=== PATIENT | female | born 1945 | race Caucasian/White ===

== ENCOUNTER → 2021-07-28 15:17 | Outpatient (BNVA) | payer MEDICARE, SELFPAY | PROVIDERS: Visit Provider Family Medicine Adult Medicine | DX: R42 Dizziness and giddiness (principal); R55 Syncope and collapse; Z95.0 Presence of cardiac pacemaker; G45.9 Transient cerebral ischemic attack, unspecified; Z13.6 Encounter for screening for cardiovascular disorders; I67.9 Cerebrovascular disease, unspecified; H91.10 Presbycusis, unspecified ear; I10 Essential (primary) hypertension | CPT/HCPCS: 80053; 83036; 84443; 85025 ==

== ENCOUNTER → 2021-08-10 09:31 | Outpatient (BNVA) | payer MEDICARE, SELFPAY | PROVIDERS: Visit Provider Family Medicine Adult Medicine | DX: G45.9 Transient cerebral ischemic attack, unspecified (principal); I67.9 Cerebrovascular disease, unspecified; R06.02 Shortness of breath; R42 Dizziness and giddiness; Z13.6 Encounter for screening for cardiovascular disorders; J44.9 Chronic obstructive pulmonary disease, unspecified; H91.10 Presbycusis, unspecified ear; I10 Essential (primary) hypertension | CPT/HCPCS: 80061 ==

== ENCOUNTER 2021-09-07 10:57 | Emergency (ER) | payer MEDICARE, SELFPAY ==
[2021-09-07 11:05] VITALS: BP 154/75; PULSE 70; RESP 18; TEMP 36.3; O2SAT 96; BMI 18.3
--- NOTE | 2021-09-07 11:19 | PC.NURSE ---
ekg done and given to provider.
--- NOTE | 2021-09-07 12:20 | XR_ITS ---
WS: [id number] Portable AP upright chest, 09/07/2021 Clinical Data: chest pain Comparison: None. Findings: No nodules, masses or effusions are seen. The heart is normal. There is a pacemaker generat or overlying the lateral aspect of the right lung. The pulmonary vascularity is not increased. No pne umonia or pneumothorax is seen. The aortic arch and descending thoracic aorta show tortuosity. XR/XR chest 1V portable 14252 Impression: Atherosclerosis.
--- NOTE | 2021-09-07 12:21 | ECG_ITS ---
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 Measurements Intervals [place] Rate: 70 P: 213 ID: [id number] QRS: 83 QRSD: 94 T: 71 QT: 402 QTc: 434 Interpretive Statements ELECTRONIC ATRIAL PACEMAKER ABNORMAL RHYTHM ECG No previous ECG available for comparison Nonspecific ST change Electronically Signed On 09-07-2021 20:45:00 ELECTRONICS INSTALLER by Юлия Morse M.D. [id number]
[2021-09-07 13:39] LABS: Basophils # 0.1 10^3/uL (0.0-0.1); Basophils % 0.7 %; Eosinophils # 0.1 10^3/uL (0.0-0.8); Eosinophils % 0.7 %; Hematocrit 40.8 % (37.0-47.0); Hemoglobin 13.3 g/dL (11.5-15.3); Lymphocytes # 1.2 10^3/uL (0.8-4.8); Lymphocytes % 17.6 %; Mean Corpuscular HGB Conc 32.6 g/dL (30.0-36.0); Mean Corpuscular Hemoglobin 30.6 pg (28.0-34.0); Mean Platelet Volume 8.6 fL (7.4-10.4); Monocytes # 0.4 10^3/uL (0.2-0.9); Monocytes % 5.6 %; Nucleated Red Blood Cells % 0 %; Platelet Count 281 10^3/cmm (130-400); Red Blood Count 4.34 10^6/uL (4.1-5.3); Red Cell Distribution Width 12.8 % (12.1-15.1); White Blood Count 6.9 10^3/uL (4.0-10.0)
[2021-09-07 14:00] LABS: Alanine Aminotransferase 16 U/L (0-33); Albumin Level 4.5 g/dL (3.5-5.2); Alkaline Phosphatase 62 IU/L (35-105); Anion Gap 17.6 (5-19); Aspartate Amino Transferase 26 U/L (0-32); Blood Urea Nitrogen 11 mg/dL (8-23); Calcium 8.8 mg/dL (8.5-10.5); Carbon Dioxide 26 mmol/L (22-29); Chloride 96 mmol/L (98-107); Globulin 2.8 g/dL (1.3-4.6); Glucose 83 mg/dL (65-115); Osmolality Calculated 281 mOsm/kg (285-295); Potassium 3.6 mmol/L (3.5-5.1); Sodium 136 mmol/L (136-145); Total Bilirubin 0.4 mg/dL (0.15-1.2); Total Protein 7.3 g/dL (6.6-8.7); Troponin(5th) Baseline 6 ng/L (0-10)
--- NOTE | 2021-09-07 14:21 | ECG_ITS ---
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 Measurements Intervals [place] Rate: 69 P: 240 DC: 210 QRS: 74 QRSD: 89 T: 81 QT: 411 QTc: 443 Interpretive Statements ELECTRONIC ATRIAL PACEMAKER MODERATE ST DEPRESSION [0.05+ mV ST DEPRESSION] Compared to ECG 09/07/2021 11:16:30 ST (T wave) deviation now present Electronically Signed On 09-07-2021 20:50:38 MUSIC MINISTRIES DIRECTOR by Юлия Morse M.D. [id number]
[2021-09-07 16:01] LABS: Troponin 5 2HR Delta 0 ABS# (0-10)
[2021-09-07 17:35] VITALS: BP 148/78; PULSE 78; RESP 16; O2SAT 98
--- NOTE | 2021-09-07 22:24 | W.ED.CHESTPA ---
HPI - Chest Pain General: Chief Complaint: Chest Pain Stated Complaint: CHEST PAINS FOR 4 HRS Time Seen by Provider: 09/07/21 17:00 Source: patient Mode of arrival: ambulatory History of Present Illness: HPI narrative: 76-year-old female complaining of an episode of chest pain that occurred this morning around 445 and resolved approximately 4 hours later. She currently is pain-free. She is concerned about possible medication interactions causing the pain. Denies any shortness of breath, fever, cough. She is very anxious and wants to leave as soon as possible. Pertinent past history: coronary artery disease Onset (ago): hour(s) Timing of current episode: now resolved Onset: during rest Pain location: epigastric Pain radiation: back Severity: mild Quality: aching and sharp Exacerbating factors: nothing Associated symptoms: Reports no associated symptoms; Deny fever(s) Review of Systems General: Reports: 10 or more systems reviewed and unremarkable except in HPI and below Const: Denies: fever(s) or chills PFSH ED PFSH: Medical History Allergic rhinitis due to allergen Anxiety and depression Bleeding external hemorrhoids COPD suggested by initial evaluation CVD (cerebrovascular disease) Remote CVA Dizziness and giddiness Gastroesophageal reflux disease Hearing loss of aging Hx of fracture of hip Hypertension Near syncope Pacemaker Shortness of breath on exertion TIA (transient ischemic attack) Physical Exam Const: COMMON NORMALS: patient oriented x3 GENERAL APPEARANCE: anxious; not ill appearing and not frail appearing NUTRITIONAL APPEARANCE: thin HENMT: COMMON NORMALS: normocephalic and atraumatic HEAD & SCALP: normocephalic and atraumatic FACE & SINUS: normal facial exam and face symmetric Eye: COMMON NORMALS: Equal, round and reactive pupils present, EOMs intact bilaterally and conjunctivae normal ALIGNMENT: Yes alignment normal CONJUNCTIVA: Yes conjunctivae normal PUPIL: Yes Equal, round and reactive pupils present Neck/C-Spine: COMMON NORMALS: full ROM and no lymphadenopathy Chest: COMMONS NORMALS: normal inspection of the chest and normal palpation of entire chest wall Resp: COMMON NORMALS: normal respiratory effort, No retractions and No use of accessory muscles EFFORT & INSPECTION: Yes able to speak in complete sentences Cardio: COMMON NORMALS: regular rate and regular rhythm; negative for Peripheral pulses 2+ throughout RATE: regular rate RHYTHM: regular rhythm PERIPHERAL PULSES: No Peripheral pulses 2+ throughout GI: COMMON NORMALS: Soft to palpation PALPATION: Yes Soft to palpation, No Tenderness to palpation present (GI), No Guarding due to palpation present (GI) and No Rigid due to palpation Neuro: COMMON NORMALS: patient oriented x3, CN's II-XII intact bilaterally and moves all extremities Psych: COMMON NORMALS: mental status grossly normal, Normal thought process present, cooperative and speech normal ACTIVITY/MOTOR BEHAVIOR: Yes restless SPEECH: Yes normal speech MOOD & AFFECT: Yes anxious and Yes irritable THOUGHT PROCESS: Normal thought process present Skin: COMMON NORMALS: no rashes or lesions noted, no wounds and turgor normal GENERAL SKIN EXAM: no rashes or lesions noted and turgor normal Course Vital Signs: Vital signs: Vital Signs Temperature 97.4 F L 09/07/21 11:05 Pulse Rate 78 09/07/21 17:35 Respiratory Rate 16 09/07/21 17:35 Blood Pressure 148/78 09/07/21 17:35 Pulse Oximetry 98 09/07/21 17:35 MDM - Chest Pain MDM Narrative: Medical decision making narrative: 76-year-old female had an episode of chest pain earlier this morning, it is since resolved. She is worried about her Nexium interacting with her Plavix. Her labs are unremarkable, chest x-ray without any acute abnormalities. Serial EKGs do not show any acute ischemic change. Serial troponin levels unchanged, 6 My suspicion for acute coronary syndrome is very low in this patient, I think she is stable for discharge home, she can follow-up with her PCP to discuss further concerns about her medications. Lab Data: Labs: Lab Results 09/07/21 09/07/21 09/07/21 13:18 13:18 13:18 WBC 6.9 10^3/uL 10^3/ uL (4.0-10.0) RBC 4.34 10^6/uL 10^6 /uL (4.1-5.3) Hgb 13.3 g/dL g/dL (11.5-15.3) Hct 40.8 % % (37.0-47.0) MCV 94.0 fl fl (81-99) MCH 30.6 pg pg (28.0-34.0) MCHC 32.6 g/dL g/dL (30.0-36.0) RDW 12.8 % % (12.1-15.1) Plt Count 281 10^3/cmm 10^3 /cmm (130-400) MPV 8.6 fL fL (7.4-10.4) Neut % (Auto) 75.0 % % Lymph % (Auto) 17.6 % % Gordon % (Auto) 5.6 % % Eos % (Auto) 0.7 % % Baso % (Auto) 0.7 % % Neut # (Auto) 5.20 10^3/uL 10^3 /uL (1.8-7.7) Lymph # (Auto) 1.2 10^3/uL 10^3/ uL (0.8-4.8) Gordon # (Auto) 0.4 10^3/uL 10^3/ uL (0.2-0.9) Eos # (Auto) 0.1 10^3/uL 10^3/ uL (0.0-0.8) Baso # (Auto) 0.1 10^3/uL 10^3/ uL (0.0-0.1) Nucleated RBC % (a uto) 0 % % Nucleated RBCs # 0.0 /100WBC /100W BC Sodium 136 mmol/L mmol/L (136-145) Potassium 3.6 mmol/L mmol/L (3.5-5.1) Chloride 96 mmol/L L mmol/ L (98-107) Carbon Dioxide 26 mmol/L mmol/L (22-29) Anion Gap 17.6 (5-19) BUN 11 mg/dL mg/dL (8-23) Creatinine 0.6 mg/dL mg/dL (0.5-0.9) GFR Calculation Not Reportable Glucose 83 mg/dL mg/dL (65-115) Calculated Osmolal ity 281 mOsm/kg L mOs m/kg (285-295) Calcium 8.8 mg/dL mg/dL (8.5-10.5) Total Bilirubin 0.4 mg/dL mg/dL (0.15-1.2) AST 26 U/L U/L (0-32) ALT 16 U/L U/L (0-33) Alkaline Phosphata se 62 IU/L IU/L (35-105) Troponin T Baselin e 6 ng/L ng/L (0-10) Troponin T 120 Min telida Delta Troponin T Total Protein 7.3 g/dL g/dL (6.6-8.7) Albumin 4.5 g/dL g/dL (3.5-5.2) Globulin 2.8 g/dL g/dL (1.3-4.6) 09/07/21 15:29 WBC RBC Hgb Hct MCV MCH MCHC RDW Plt Count MPV Neut % (Auto) Lymph % (Auto) Gordon % (Auto) Eos % (Auto) Baso % (Auto) Neut # (Auto) Lymph # (Auto) Gordon # (Auto) Eos # (Auto) Baso # (Auto) Nucleated RBC % (a uto) Nucleated RBCs # Sodium Potassium Chloride Carbon Dioxide Anion Gap BUN Creatinine GFR Calculation Glucose Calculated Osmolal ity Calcium Total Bilirubin AST ALT Alkaline Phosphata se Troponin T Baselin e Troponin T 120 Min telida 6.00 ng/L ng/L (0-10) Delta Troponin T 0 ABS# ABS# (0-10) Total Protein Albumin Globulin Discharge Plan Discharge Patient Disposition: Home Clinical Impression: Chest pain not due to acute coronary syndrome Condition: Stable Prescriptions: No Action albuterol sulfate [ProAir HFA] 90 mcg/actuation HFA aerosol inhaler 2 puff inhalation Q6H PRN (Reason: shortness of breath or wheezing) Qty: 8.5 RF: 3 montelukast [Singulair] 10 mg tablet 10 mg PO DAILY Qty: 30 RF: 5 Preparation H 0.25-14-74.9 % ointment 1 applic KS DAILY PRN (Reason: hemorrhoids) Qty: 57 RF: 1 omeprazole 20 mg capsule,delayed release(DR/EC) 20 mg PO DAILY Qty: 30 RF: 5 atorvastatin 10 mg tablet 10 mg PO BEDTIME RF: 0 atenolol 25 mg tablet 25 mg PO BID RF: 0 clopidogrel 75 mg tablet 75 mg PO DAILY RF: 0 tramadol 50 mg tablet 50 mg PO BID PRN (Reason: Pain) RF: 0 triamterene-hydrochlorothiazid 37.5-25 mg capsule 1 cap PO DAILY RF: 0 multivitamin Tablet 1 tab PO DAILY RF: 0 Vitamin C 500 mg Tablet 500 mg PO DAILY RF: 0 aspirin 81 mg Tablet,Chewable 81 mg PO DAILY RF: 0 Vitamin B-12 25 mcg Tablet 1,000 mcg PO DAILY RF: 0 flaxseed 1,000 mg Capsule 1,000 mg PO DAILY RF: 0 Discharge Orders: Discharge ED (Routine); Ordered 09/07/21 Ordered By: Rissa Howard Referrals: Ton Muse MD [Primary Care Provider] - Discharge Diet: Advance as tolerated Discharge Activity: Resume usual activity Patient Instructions: Chest Pain - Noncardiac Coding Level of Care Code ED Health Promotion Coordinator for Chg Fwd Exam Comprehensive
== END 2021-09-07 17:36 | disposition home or self-care (01) ==
PROVIDERS: Physician Assistant; Emergency Provider Family Medicine; PCP Family Medicine Adult Medicine
DX: I24.9 Acute ischemic heart disease, unspecified (principal); Z79.02 Long term (current) use of antithrombotics/antiplatelets; Z79.82 Long term (current) use of aspirin; J44.9 Chronic obstructive pulmonary disease, unspecified; Z86.73 Personal history of transient ischemic attack (TIA), and cerebral infarction without residual deficits; I10 Essential (primary) hypertension; Z95.0 Presence of cardiac pacemaker
CPT/HCPCS: 36415; 71045; 80053; 84484; 85025; 93005; 99283

== ENCOUNTER 2021-10-19 10:22 | Outpatient (CLI) | payer MEDICARE, SELFPAY ==
[2021-10-24 14:57] LABS: Quest SARS-CoV-2 RNA NOT DETECTED (NOT DETECTED)
== END 2021-10-19 10:23 | disposition home or self-care (01) ==
PROVIDERS: Nurse Practitioner; PCP Family Medicine Adult Medicine; Visit Provider Surgery
DX: R19.7 Diarrhea, unspecified (principal)
CPT/HCPCS: 83630; 87177; 87209; 87493; 87506

== ENCOUNTER → 2021-10-22 15:55 | Outpatient (BNVA) | payer MEDICARE, SELFPAY | PROVIDERS: PCP Family Medicine Adult Medicine; Visit Provider Nurse Practitioner | DX: Z20.822 Contact with and (suspected) exposure to COVID-19 (principal) | CPT/HCPCS: 87635 ==

== ENCOUNTER → 2021-12-16 10:00 | Outpatient (BNVA) | payer MEDICARE, SELFPAY | PROVIDERS: PCP Family Medicine Adult Medicine | DX: Z95.0 Presence of cardiac pacemaker (principal) | CPT/HCPCS: 93280 ==

== ENCOUNTER → 2021-12-20 10:33 | Outpatient (BNVA) | payer MEDICARE, SELFPAY | PROVIDERS: PCP Family Medicine Adult Medicine; Visit Provider Internal Medicine Cardiovascular Disease | DX: Z45.010 Encounter for checking and testing of cardiac pacemaker pulse generator [battery] (principal); R06.02 Shortness of breath; I10 Essential (primary) hypertension; R55 Syncope and collapse; K21.9 Gastro-esophageal reflux disease without esophagitis; I67.9 Cerebrovascular disease, unspecified; Z87.891 Personal history of nicotine dependence | CPT/HCPCS: 99214 ==

== ENCOUNTER 2021-12-28 09:14 | Outpatient (CLI) | payer MEDICARE, SELFPAY ==
--- NOTE | 2021-12-28 10:00 | US_ITS ---
WS: [id number] ULTRASOUND ABDOMEN LIMITED CLINICAL INFORMATION: R19.7 - Diarrhea, unspecified COMPARISON: None. FINDINGS: Liver Size: Normal. Craniocaudal length: 14.2 cm. Echogenicity: Normal. Surface nodularity: None. Mass (size and location): None. Bile ducts Intrahepatic ducts: Normal. Common bile duct diameter: 0.3 cm. Gallbladder Normal. Gallstones: None. Gallbladder sludge: None. Gallbladder wall thickening: None. Pericholecystic fluid: None. Sonographic Adams sign: Absent. Pancreas Normal as visualized. Right kidney: Normal. Hydronephrosis: None. Size: 9.8 cm x 5.3 cm x 3.7 cm. Abdominal aorta and IVC Visualized portions are normal. Ascites: None. US/US gall bladder 12694 IMPRESSION: 1. Gallbladder is normal in appearance. A few folds in the neck of the gallbla dder. No shadowing cholelithiasis. 2. Normal common bile duct measures 3.2 mm. 3. Normal liver. 4. No hydronephrosis in RIGHT kidney.
== END 2021-12-28 09:15 | disposition home or self-care (01) ==
LOC: RAD 09:17
PROVIDERS: PCP Family Medicine Adult Medicine; Visit Provider Surgery
DX: R10.9 Unspecified abdominal pain (principal); R19.7 Diarrhea, unspecified
CPT/HCPCS: 76705

== ENCOUNTER 2022-01-04 07:17 | Day surgery (SDC) | payer MEDICARE, SELFPAY ==
[2022-01-04 07:41] VITALS: BP 145/91; PULSE 71; RESP 16; TEMP 35.9; O2SAT 99
[2022-01-04] MEDS: sodium chloride 0.9% 1,000 ML 30 ML IV (07:57)
--- NOTE | 2022-01-04 08:20 | ANES.PREANE2 ---
Pre-Anesthetic Assessment Height/Weight: Height 1.73 m Weight 47.174 kg Temp Pulse Resp BP Pulse Ox 96.7 F L 71 16 145/91 99 01/04/22 07:41 01/04/22 07:41 01/04/22 07:41 01/04/22 07:41 01/04/22 07:41 Preop Diagnosis: upper gi symptoms Operation Date: 01/04/22 09:00 Proposed Procedures p EGD 51737/r19.7(Not Applicable) - Jeremie Giordano MD Familial anesthetic complications: None Was Beta Ayaz taken within 24 hours: Yes Was Clonidine taken within 24 hours: N/A Last intake: Intake Last Liquid Date 01/03/22 Last Liquid Time 19:00 Last Solid Date 01/03/22 Last Solid Time 19:00 Social No alcohol and No tobacco Exam alert, oriented x 3, clear to auscultation bilaterally and regular rate & rhythm Airway Mallampati: Class II Dentition: full Pulmonary Chronic Obstructive Pulmonary Disease CV/HEM Hypertension pacemaker GI Gastroesophageal Reflux Disease Metabolic Hyperlipidemia Neuropsych Cerebrovascular Accident (plavix) and Transient Ischemic Attack Anesthetic Plan ASA status: 4 Anesthesia: MAC Risk of > 500 ml blood loss (7ml/kg in children): No Medications/Allergies Home Medications Medication Instructions Recorded Confirmed Last Taken Type atenolol 25 mg tablet 25 mg PO BID 07/29/21 01/03/22 01/04/22 History atorvastatin 10 mg tablet 10 mg PO BEDTIME tab 07/29/21 01/03/22 01/03/22 History clopidogrel 75 mg tablet 75 mg PO DAILY 07/29/21 01/03/22 01/01/22 History triamterene 37.5 1 cap PO DAILY 07/29/21 01/03/22 01/03/22 History mg-hydrochlorothiazide 25 mg capsule ascorbic acid (vitamin C) 500 mg 500 mg PO DAILY 09/07/21 01/03/22 01/03/22 History tablet (Vitamin C) aspirin 81 mg chewable tablet 81 mg PO DAILY 09/07/21 01/03/22 01/03/22 History cyanocobalamin (vitamin B-12) 25 1,000 mcg PO DAILY 09/07/21 01/03/22 01/03/22 History mcg tablet flaxseed 1,000 mg capsule 1,000 mg PO DAILY 09/07/21 01/03/22 01/03/22 History multivitamin 1 tab PO DAILY 09/07/21 01/03/22 01/03/22 History tramadol 50 mg tablet 50 mg PO BID PRN 30 Days #60 tab 11/01/21 01/03/22 01/03/22 Rx psyllium husk (with sugar) 3 2 tbsp PO DAILY #798 g 11/08/21 01/03/22 01/03/22 Rx gram/7 gram oral powder (Metamucil (with sugar)) montelukast 10 mg tablet 10 mg PO DAILY 01/04/22 01/04/22 01/04/22 History Allergies Allergy/AdvReac Type Severity Reaction Status Date / Time mold Allergy Intermediate sneezing Verified 01/03/22 10:39 and rhinorrhea codeine Allergy Unknown Unknown Verified 01/03/22 10:39 Current Medications Generic Name Dose Route Start Last Admin Trade Name Freq PRN Reason Stop Dose Admin Sodium Chloride 1,000 mls @ 30 mls/hr 01/04/22 07:30 01/04/22 07:57 Sodium Chloride 0.9% IV 01/05/22 07:29 30 mls/hr .Q24H DAKOTA Administration PFSH Anesthesia Medical History Allergic rhinitis due to allergen Anxiety and depression Bleeding external hemorrhoids COPD suggested by initial evaluation CVD (cerebrovascular disease) Remote CVA Gastroesophageal reflux disease Hearing loss of aging Hx of fracture of hip Hypertension TIA (transient ischemic attack) Urine, incontinence, stress female Surgical History Pacemaker Status post colonoscopy Social History Smoking and tobacco status: former smoker Data Anesthesia Cardiac Studies: No Data to Display
--- NOTE | 2022-01-04 08:22 | W.PM.OPSFHP ---
Same Day Surgery H&P Indication for Procedure/HPI DATE OF PROCEDURE: January 04, 2022 CHIEF COMPLAINT/INDICATIONFOR SURGICAL PROCEDURE: EGD PREOP DIAGNOSIS: upper gi symptoms PLANNED PROCEDURE: Operation Date: 01/04/22 09:00 Proposed Procedures p EGD 62152/r19.7(Not Applicable) - Jeremie Giordano MD Medications/Allergies* Home Medications Medication Instructions Recorded Confirmed Type atenolol 25 mg tablet 25 mg PO BID 07/29/21 01/03/22 History atorvastatin 10 mg tablet 10 mg PO BEDTIME tab 07/29/21 01/03/22 History clopidogrel 75 mg tablet 75 mg PO DAILY 07/29/21 01/03/22 History triamterene 37.5 1 cap PO DAILY 07/29/21 01/03/22 History mg-hydrochlorothiazide 25 mg capsule ascorbic acid (vitamin C) 500 mg 500 mg PO DAILY 09/07/21 01/03/22 History tablet (Vitamin C) aspirin 81 mg chewable tablet 81 mg PO DAILY 09/07/21 01/03/22 History cyanocobalamin (vitamin B-12) 25 1,000 mcg PO DAILY 09/07/21 01/03/22 History mcg tablet flaxseed 1,000 mg capsule 1,000 mg PO DAILY 09/07/21 01/03/22 History multivitamin 1 tab PO DAILY 09/07/21 01/03/22 History montelukast 10 mg tablet 10 mg PO DAILY 01/04/22 01/04/22 History Allergies/Adverse Reactions Allergy/AdvReac Type Severity Reaction Status Date / Time mold Allergy Intermediate sneezing Verified 01/03/22 10:39 and rhinorrhea codeine Allergy Unknown Unknown Verified 01/03/22 10:39 Current Medications: Generic Name Dose Route Start Last Admin Trade Name Freq PRN Reason Stop Dose Admin Sodium Chloride 1,000 mls @ 30 mls/hr 01/04/22 07:30 01/04/22 07:57 Sodium Chloride 0.9% IV 01/05/22 07:29 30 mls/hr .Q24H DAKOTA Administration Pertinent History/Comorbid Conditions* Medical History (Updated 12/21/21 @ 15:16 by Lory Thomas MD) Allergic rhinitis due to allergen Anxiety and depression Bleeding external hemorrhoids COPD suggested by initial evaluation CVD (cerebrovascular disease) Remote CVA Gastroesophageal reflux disease Hearing loss of aging Hx of fracture of hip Hypertension TIA (transient ischemic attack) Urine, incontinence, stress female Surgical History (Updated 10/18/21 @ 10:22 by Jeremie Giordano MD) Pacemaker Status post colonoscopy Social History Smoking and tobacco status: former smoker Pertinent Exam Findings alert, oriented x 3 and regular rate & rhythm Recommendations Surgery/Procedure today Coding Level of Care Code Acute Animal Trainer for Abelardo Kilgore
[2022-01-04 09:11] VITALS: BP 97/54; PULSE 70; RESP 16; TEMP 36.2; O2SAT 96
[2022-01-04 09:22] VITALS: BP 119/70; PULSE 70; RESP 18; O2SAT 100
--- NOTE | 2022-01-04 13:09 | ANE.PACU2 ---
Inpatient post-anesthesia follow up: Airway intact: Yes Vital signs: Temperature 97.1 F Pulse Rate 70 Respiratory Rate 18 Blood Pressure 119/70 Pulse Oximetry 100 Oxygen Delivery Me thod Room Air Oxygen Flow Rate 4 Fraction of Inspir ed Oxygen Hydration adequate: Yes Nausea and vomiting: No Pain level: 1 Mental status: Baseline
== END 2022-01-04 09:40 | disposition home or self-care (01) ==
PROVIDERS: PCP Family Medicine Adult Medicine; Visit Provider Surgery
PROC: 0DJ08ZZ Inspection of Upper Intestinal Tract, Via Natural or Artificial Opening Endoscopic (ICD-10-PCS; CPT 43235; principal; 2022-01-04 09:00)
DX: R19.7 Diarrhea, unspecified (principal); F41.9 Anxiety disorder, unspecified; F32.9 Major depressive disorder, single episode, unspecified; J44.9 Chronic obstructive pulmonary disease, unspecified; Z86.73 Personal history of transient ischemic attack (TIA), and cerebral infarction without residual deficits; I10 Essential (primary) hypertension; Z87.891 Personal history of nicotine dependence; K25.9 Gastric ulcer, unspecified as acute or chronic, without hemorrhage or perforation; Z95.0 Presence of cardiac pacemaker; K21.9 Gastro-esophageal reflux disease without esophagitis; E78.5 Hyperlipidemia, unspecified; Z79.02 Long term (current) use of antithrombotics/antiplatelets; Z79.82 Long term (current) use of aspirin
CPT/HCPCS: 43239; 88305; J2704; J7030

== ENCOUNTER → 2022-01-31 13:59 | Outpatient (BNVA) | payer MEDICARE, SELFPAY | PROVIDERS: PCP Family Medicine Adult Medicine; Visit Provider Surgery | DX: K29.70 Gastritis, unspecified, without bleeding (principal); B96.81 Helicobacter pylori [H. pylori] as the cause of diseases classified elsewhere; K59.00 Constipation, unspecified | CPT/HCPCS: 99213 ==

== ENCOUNTER → 2022-02-17 10:32 | Outpatient (BNVA) | payer MEDICARE, SELFPAY | PROVIDERS: PCP Family Medicine Adult Medicine; Visit Provider Internal Medicine Cardiovascular Disease | DX: Z45.010 Encounter for checking and testing of cardiac pacemaker pulse generator [battery] (principal) | CPT/HCPCS: 93280 ==

== ENCOUNTER → 2022-03-17 09:55 | Outpatient (BNVA) | payer MEDICARE, SELFPAY | PROVIDERS: PCP Family Medicine Adult Medicine; Visit Provider Internal Medicine Cardiovascular Disease | DX: Z45.010 Encounter for checking and testing of cardiac pacemaker pulse generator [battery] (principal) | CPT/HCPCS: 93280 ==

== ENCOUNTER 2022-04-06 12:50 | Outpatient (CLI) | payer MEDICARE, SELFPAY ==
--- NOTE | 2022-04-06 13:30 | USCV_ITS ---
Transthoracic Echo Suad Zendejas Age: 76 Gender: F : 1945 Exam Date: 04/06/2022 13:29 Ordering Phys: Lory Thomas MD ([email or web address]) Technologist: Jv Butler [place] [facility] [place]: Chest Pain BP: 124 / 72 HR: 64 Rhythm: Sinus Technical Quality: Adequate MEASUREMENTS (Male / Female) Normal Values 2D ECHO LV Diastolic Diameter PLAX 4.0 cm 4.2 - 5.9 / 3.9 - 5.3 cm LV Systolic Diameter PLAX 1.6 cm IVS Diastolic Thickness 0.9 cm 0.6 - 1.0 / 0.6 - 0.9 cm IVS Systolic Thickness 1.2 cm LVPW Diastolic Thickness 0.9 cm 0.6 - 1.0 / 0.6 - 0.9 cm LVPW Systolic Thickness 1.7 cm LVOT Diameter 2.1 cm LV Ejection Fraction 2D Teich 77.6 % LV Ejection Fraction MOD 2C 56.7 % LV Ejection Fraction 2C AL 59.3 % LA Diameter 3.5 cm IVC Diameter 1.4 cm M-MODE LV Diastolic Diameter MM 4.2 cm 4.2 - 5.9 / 3.9 - 5.3 cm LV Systolic Diameter MM 2.5 cm LV Ejection Fraction MM Teich 71.6 % IVS Diastolic Thickness MM 1.0 cm 0.6 - 1.0 / 0.6 - 0.9 cm IVS Systolic Thickness MM 1.7 cm LVPW Diastolic Thickness MM 0.9 cm 0.6 - 1.0 / 0.6 - 0.9 cm LVPW Systolic Thickness MM 1.6 cm RV Diastolic Diameter MM 1.3 cm Aortic Annulus Diameter 3.0 cm LA Ao Ratio MM 1.4 MV E Point Septal Separation 1.5 cm DOPPLER AV Peak Velocity 119.0 cm/s LVOT Peak Velocity 85.0 cm/s AV Area Cont Eq vti 2.3 cm squared AV Area Cont Eq pk 2.4 cm squared MV Area PHT 5.1 cm squared Mitral E to A Ratio 1.1 MV E' Velocity 44.0 cm/s Mitral E to MV E' Ratio 10.1 Mitral E to LV E' Lateral Ratio 8.7 Mitral E to LV E' Septal Ratio 12.1 TR Peak Velocity 203.0 cm/s TR Peak Gradient 16.5 mmHg TV Peak E Velocity 76.0 cm/s Right Atrial Pressure 3.0 mmHg Pulmonary Artery Systolic Pressu 19.5 mmHg PV Peak Velocity 80.0 cm/s FINDINGS Left Ventricle Normal left ventricular size, systolic function and wall thickness, with no regional wall motion abnormalities. Left ventricular ejection fraction is estimated at 60 %. Normal diastolic function. Right Ventricle Normal right ventricular size and systolic function. Right ventricular systolic pressure 31 mmHg. Pacemaker wire visualized in the right ventricle. Right Atrium Normal right atrial size. Pacemaker wire in the right atrial cavity. Left Atrium Upper normal left atrial size. Mitral Valve Mild mitral annular calcification. Mildly thickened mitral valve. No mitral valve stenosis. Trace mitral valve regurgitation. Aortic Valve Aortic valve not well visualized. Probably tricuspid aortic valve. No aortic valve stenosis. No aortic valve regurgitation. Tricuspid Valve Structurally normal tricuspid valve. Mild tricuspid valve regurgitation. Pulmonic Valve Pulmonic valve not well visualized. Trace pulmonary valve regurgitation. Pericardium No pericardial effusion. Aorta Normal-sized aortic root. IVC Inferior vena cava not visualized. CONCLUSIONS 1. Normal left ventricular size, systolic function and wall thickness, with no regional wall motion abnormalities. Left ventricular ejection fraction is estimated at 60 %. Normal diastolic function. 2. Pulmonary artery pressure estimated at 31 mmHg. 3. Mild tricuspid valve regurgitation. 4. No prior similar studies to compare. Lory Thomas MD (Electronically Signed) Final Date: 10 April 2022 10:18 S
== END 2022-04-06 12:51 | disposition home or self-care (01) ==
PROVIDERS: PCP Family Medicine Adult Medicine; Visit Provider Internal Medicine Cardiovascular Disease
DX: I07.1 Rheumatic tricuspid insufficiency (principal); R06.02 Shortness of breath
CPT/HCPCS: 93306

== ENCOUNTER → 2022-04-21 10:13 | Outpatient (BNVA) | payer MEDICARE, SELFPAY | PROVIDERS: PCP Family Medicine Adult Medicine | DX: Z45.010 Encounter for checking and testing of cardiac pacemaker pulse generator [battery] (principal) | CPT/HCPCS: 93280 ==

== ENCOUNTER → 2022-04-24 10:32 | Outpatient (BNVA) | payer MEDICARE, SELFPAY | PROVIDERS: PCP Family Medicine Adult Medicine; Visit Provider Internal Medicine Cardiovascular Disease | DX: Z45.010 Encounter for checking and testing of cardiac pacemaker pulse generator [battery] (principal); I10 Essential (primary) hypertension; I67.9 Cerebrovascular disease, unspecified; Z87.891 Personal history of nicotine dependence | CPT/HCPCS: 36415; 80048; 85025; 85610; 86850; 86900; 99214 ==

== ENCOUNTER 2022-04-26 05:57 | Outpatient (CLI) | payer MEDICARE, SELFPAY ==
[2022-04-26] VITALS (9 sets, daily range): BP systolic 96–133; BP diastolic 58–72; PULSE 61–73; RESP 11–20; TEMP 36.4–36.9; O2SAT 95–100; BMI 18.4
--- NOTE | 2022-04-26 07:02 | W.PM.OPSUD ---
Surgery/Procedure H&P Update DATE OF PROCEDURE: April 26, 2022 DATE H&P PERFORMED: 04/24/22 H&P UPDATE INFORMATION: I have reviewed H&P completed within last 30 days, I have examined patient prior to procedure and No changes to prior documentation PREOP DIAGNOSIS: Pacemaker MAGNO PRIMARY INDICATION FOR PROCEDURE: Patient with a heart block/pacemaker MAGNO PLANNED PROCEDURE: Operation Date: 04/26/22 07:00 Proposed Procedures p Pacemaker Generator Change 14229,Z45.010(Not Applicable) - Юлия Morse MD PATIENT REASSESSED PRIOR TO SEDATION, WITH NO CHANGE NOTED: Yes PHYSICAL EXAM: alert, oriented x 3, clear to auscultation bilaterally and regular rate & rhythm AIRWAY EVAL/ANESTHESIA PLAN: normal airway, see other exam findings, ASA III, Local Anesthesia, Risks, benefits & alternatives of sedation and/or procedure discussed and Patient agrees to continue as planned
--- NOTE | 2022-04-26 08:31 | PM.OP ---
Operative Report Date of procedure: April 26, 2022 Pre-op diagnosis: Preop Diagnosis Pacemaker MAGNO Procedure: PROCEDURE: PACEMAKER REVISION PREOPERATIVE DIAGNOSIS: Pacemaker elective replacement indication. POSTOPERATIVE DIAGNOSIS: Pacemaker elective replacement indication. ESTIMATED BLOOD LOSS: None COMPLICATIONS: None. 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 The patient was found to have elective replacement indication, during routine office followup evaluation. For further management of patient's condition for the symptomatic bradycardia, the patient required a pacemaker revision. Patient required a dual-chamber pacemaker for symptom relief AV synchrony The procedure was explained to the patient and in detail with the risks and benefits. The risks of bleeding, hematoma, vascular injury, infection and other concomitant complications were explained in detail, which the patient understood well and consented to proceed. PROCEDURES PERFORMED: 1. Explantation of the old pacemaker generator. 2. Implantation of the new generator. The patient brought to the Cardiac Diving Board Assembler. The right side of the neck and the subclavian area were cleaned and draped in a sterile fashion. 1% Xylocaine was used for local anesthetic agent. A 2 inch long incision was made just below the previous pacemaker scar. By sharp and blunt dissection, the pacemaker pocket was accessed. The old generator was delivered from the pocket. The generator was detached from the lead. The new Medtronic generator was attached to the lead. The pacemaker pocket was copiously irrigated with vancomycin solution. Complete hemostasis was achieved. The lead was positioned behind the generator and the generator was attached to the pectoralis fascia by suturing with 0 Surgilon. Sponge counts were confirmed. The pacemaker pocket was closed in layers. Skin was approximated using 4-0 Vicryl. EXPLANTED DEVICE: Pacemaker Generator: Brand: [employer]Tier Ellen MAGANA Model number: RF [id number]. Serial number: [id number]. Date of implant: 12/06/2011 IMPLANTED DEVICES: Ventricular Lead: Date of implantation: 12/06/2011 Model number: [id number]/52 Serial number: [id number] Make: St Tru Tendril. Atrial lead Date of implantation: 11/28/2011 Model number: [id number] 1688TC/46 cm Serial number:[id number] Make:St Tru tendril. Implanted Generator: Date of implantation : 04/26/2022 Brand: [employer] DR NOVA Reyes. Model number: [id number] Serial number: [id number] Make: Medtronic Stimulation Threshold: The ventricular sensing was 4.0 millivolts. Ventricular lead impedance was 399 ohms and the pacing threshold was 1.5 volts at 0.4 milliseconds. The atrial sensing was 2.8 millivolts. Atrial lead impedance was 532 ohms and the pacing threshold was 1.0 volts at 0.4 milliseconds. The pacemaker was set for DDDR mode with an upper rate of 130 and a lower rate of 70. The automatic mode switch was turned on for a heart rate of 162. High breath he has a print out the. I am in my office. After. Baseline artifacts, need to repeat Abdomen office. Okay thanks A pressure dressing was applied over the pacemaker site. The patient was transferred back to medical floor in stable condition. Sponge counts were correct.
[2022-04-26] MEDS: aspirin 81 mg Chew Tablet PO (09:26)
[2022-04-26] MEDS: ascorbic acid 500 mg Tablet PO (09:27)
[2022-04-26] MEDS: sodium chloride 0.9% 1,000 ML 75 ML IV ×2 (09:27→21:26)
[2022-04-26] MEDS: TRAMadol 50 mg Tablet PO ×2 (09:35→21:27)
--- NOTE | 2022-04-26 16:57 | PC.OT ---
OT shawn attempted. Pt very tangential. Pacemaker precautions discussed, handout for one-handed techniques for ADLs/IADLs and pendulum exercises given. Will attempt further education tomorrow when friend who is assisting pt through recovery is present.
[2022-04-26] MEDS: atorvastatin 40 mg Tablet 10 MG PO (21:27)
[2022-04-26] MEDS: atenolol 50 mg Tablet 25 MG PO (21:28)
[2022-04-27 04:00] VITALS: BP 116/73; PULSE 69; RESP 18; TEMP 36.7; O2SAT 96
[2022-04-27 06:00] VITALS: PULSE 68
--- NOTE | 2022-04-27 06:00 | ECG_ITS ---
[facility] Test Date: 2022-04-27 Pat Name: Suad Zendejas Department: Room: 268 Gender: Female Tapper Hand: : 1945 Requested By: Юлия Morse Order Number: [id number] Reading MD: Юлия Morse M.D. Measurements Intervals [place] Rate: 69 P: 195 NH: 217 QRS: 33 QRSD: 90 T: 28 QT: 403 QTc: 434 Interpretive Statements ELECTRONIC ATRIAL PACEMAKER LOW QRS VOLTAGE IN EXTREMITY LEADS [QRS DEFLECTION < 0.5 mV IN LIMB LEADS] ABNORMAL RHYTHM ECG No previous ECG available for comparison Electronically Signed On 04-27-2022 22:53:56 CDT by Юлия Morse M.D. [id number]
--- NOTE | 2022-04-27 08:34 | PC.OT ---
OT evaluation attempted. Pt. vomiting into bucket as therapist entered; pt. requested nausea medicine. Nursing notified. Evaluation to be attempted at another time when pt. is not nauseous.
[2022-04-27] MEDS: ondansetron 2 mg/ML SDV 2 mL 4 MG IM (09:26)
== END 2022-04-27 14:15 | disposition home or self-care (01) ==
LOC: CCL 05:58 → CSU 08:05 → MEDSURG 04-27 09:27
PROVIDERS: PCP Family Medicine Adult Medicine; Visit Provider Internal Medicine Cardiovascular Disease
DX: Z45.010 Encounter for checking and testing of cardiac pacemaker pulse generator [battery] (principal); Z86.73 Personal history of transient ischemic attack (TIA), and cerebral infarction without residual deficits; Z79.82 Long term (current) use of aspirin; J44.9 Chronic obstructive pulmonary disease, unspecified; I10 Essential (primary) hypertension; Z87.891 Personal history of nicotine dependence
CPT/HCPCS: 33213; 36415; 93005; 96360; 96372; 99152; 99153; C1769; C1786; J0690; J2250; J2405; J3010; J3480; J7030; J7050

== ENCOUNTER 2022-04-30 11:13 | Emergency (ER) | payer MEDICARE, SELFPAY ==
[2022-04-30 11:20] VITALS: BP 130/71; PULSE 78; RESP 16; TEMP 36.6; O2SAT 98; BMI 25.7
--- NOTE | 2022-04-30 11:38 | W.ED.WOUNDLC ---
HPI - Wound/Laceration General: Chief Complaint: Wound/Laceration Stated Complaint: wound dressing Time Seen by Provider: 04/30/22 11:31 Source: patient Mode of arrival: ambulatory Limitations: no limitations History of Present Illness: 76-year-old female presents to the ER today for a wound check. Patient reports a family member was looking at her wound and thought maybe the stitches had opened up. Patient denies any drainage from it. She has not changed the wound since that time of the surgery. Patient denies any increased pain. No other concerns today. Review of Systems General: Reports: 10 or more systems reviewed and unremarkable except in HPI and below PFSH ED PFSH: Medical History Allergic rhinitis due to allergen Anxiety and depression Complaint of wax in ear COPD suggested by initial evaluation CVD (cerebrovascular disease) Remote CVA Dermatitis of lower extremity Gastroesophageal reflux disease Hearing loss of aging Helicobacter pylori gastritis Hx of fracture of hip Hypertension TIA (transient ischemic attack) Urine, incontinence, stress female Surgical History H/O esophagogastroduodenoscopy (01/04/22) Pacemaker Status post colonoscopy Family History Brother Cancer Mother Dementia Denies family history of Diabetes CAD (coronary artery disease) Clotting disorder Chronic kidney disease (CKD) Suicide Anesthesia complication Bleeding disorder Lung disease Stroke Social History Smoking and tobacco status: former smoker Alcohol intake: never Physical Exam Const: COMMON NORMALS: no acute distress, average body habitus, patient oriented x3, no limitations and alert HENMT: COMMON NORMALS: normocephalic, atraumatic, external ears normal, Normal external nose present and moist oral mucous membranes HEAD & SCALP: normocephalic and atraumatic NOSE: Normal external nose present EXTERNAL EAR: Yes external ears normal Eye: COMMON NORMALS: conjunctivae normal CONJUNCTIVA: Yes conjunctivae normal Chest: OTHER: Pacemaker insertion site appears normal. No obvious erythema or infection. Nontender. Right side of chest has noted pacemaker. Resp: COMMON NORMALS: normal respiratory effort, No retractions and clear to auscultation bilaterally AUSCULTATION: clear to auscultation bilaterally Cardio: COMMON NORMALS: regular rate, regular rhythm and No murmurs present (Cardio) RATE: regular rate RHYTHM: regular rhythm GI: COMMON NORMALS: Normal to inspection, nondistended, normoactive bowel sounds present, Soft to palpation and non-tender PALPATION: Yes Soft to palpation Extremity: COMMON NORMALS: normal to inspection and full ROM Neuro: COMMON NORMALS: patient oriented x3 SENSORIUM/ORIENTATION: Yes alert Psych: COMMON NORMALS: mental status grossly normal, Normal thought process present and cooperative THOUGHT PROCESS: Normal thought process present Skin: NARRATIVE SKIN EXAM: Wound appears to be healing nicely. No concern for infection. Sutures appear in place however I did not remove the Steri-Strips over the top of it. There is 1 area of mild skin irritation where the bandage was attached to the skin. This is very mild. Course ED course: 76-year-old female presents to the ER for a wound check. Patient had a pacemaker placed last week and a family member was concerned it might be infected because there is an area of redness. Patient denies increased pain or drainage. Denies any other symptoms at this time. We will check the wound at this time. Vital Signs: Vital signs: Vital Signs Temperature 97.9 F 04/30/22 11:20 Pulse Rate 78 04/30/22 11:20 Respiratory Rate 16 04/30/22 11:20 Blood Pressure 130/71 04/30/22 11:20 Pulse Oximetry 98 04/30/22 11:20 Oxygen Delivery Me thod 04/30/22 11:20 MDM - Wound/Laceration Medical Decision Making 76-year-old female presents to the ER for a wound check. Patient had a pacemaker placed last week and a family member was concerned it might be infected because there is an area of redness. Patient denies increased pain or drainage. Denies any other symptoms at this time. On exam, patient's wound appears to be healing nicely although I did not remove Steri-Strips. Recommended patient follow-up at her next scheduled appointment with her specialist. Continue home wound care as previously discussed with surgeon. Return to the ER with new or worsening symptoms. Patient verbalized understanding and was in agreement with the treatment plan. Critical Care Time Critical Care Time: Critical Care Time: No Discharge Plan Discharge Patient Disposition: Home Clinical Impression: Skin irritation Condition: Stable Prescriptions: No Action atorvastatin 10 mg tablet 10 mg PO BEDTIME Metamucil (with sugar) 3 gram/7 gram powder 2 tbsp PO DAILY Qty: 798 3RF Rx Instructions: Take 2 Tbsp at bedtime. tramadol 50 mg tablet 50 mg PO BID PRN (Reason: moderate to severe Pain) 30 Days Qty: 60 0RF atenolol 25 mg tablet 25 mg PO BID 30 Days Qty: 60 2RF clopidogrel 75 mg tablet 75 mg PO DAILY 30 Days Qty: 30 2RF triamterene-hydrochlorothiazid 37.5-25 mg capsule 1 cap PO DAILY 30 Days Qty: 30 2RF multivitamin Tablet 1 tab PO DAILY ascorbic acid (vitamin C) [Vitamin C] 500 mg Tablet 500 mg PO DAILY aspirin 81 mg Tablet,Chewable 81 mg PO DAILY cyanocobalamin (vitamin B-12) 25 mcg Tablet 1,000 mcg PO DAILY flaxseed 1,000 mg Capsule 1,000 mg PO DAILY cephalexin 500 mg capsule 500 mg PO Q6H 5 Days Qty: 20 0RF Discharge Orders: Discharge ED (Routine); Ordered 04/30/22 Ordered By: Wen Rondon Referrals: Ton Muse MD [Primary Care Provider] - Discharge Diet: Usual diet Discharge Activity: Limit activity as instructed Patient Instructions: Opioid Safety Activity Restrictions/Additional Instructions: Continue home wound care as previously prescribed by surgeon. Follow-up at next scheduled appointment. Return to the ER with new or worsening symptoms. Coding Level of Care Code ED Medical Records Supervisor for Abelardo Kilgore
== END 2022-04-30 12:18 | disposition home or self-care (01) ==
PROVIDERS: Emergency Provider Physician Assistant; PCP Family Medicine Adult Medicine
DX: L98.9 Disorder of the skin and subcutaneous tissue, unspecified (principal); Z79.02 Long term (current) use of antithrombotics/antiplatelets; Z79.82 Long term (current) use of aspirin; J44.9 Chronic obstructive pulmonary disease, unspecified; Z86.73 Personal history of transient ischemic attack (TIA), and cerebral infarction without residual deficits; I10 Essential (primary) hypertension; Z95.0 Presence of cardiac pacemaker; Z87.891 Personal history of nicotine dependence
CPT/HCPCS: 99282

== ENCOUNTER → 2022-05-10 09:44 | Outpatient (BNVA) | payer MEDICARE, SELFPAY | PROVIDERS: PCP Family Medicine Adult Medicine; Visit Provider Nurse Practitioner Family | DX: Z95.0 Presence of cardiac pacemaker (principal) | CPT/HCPCS: 99214 ==

== ENCOUNTER → 2022-05-29 13:16 | Outpatient (BNVA) | payer MEDICARE, SELFPAY | PROVIDERS: PCP Family Medicine Adult Medicine; Visit Provider Internal Medicine Cardiovascular Disease | DX: I10 Essential (primary) hypertension (principal); Z95.0 Presence of cardiac pacemaker; Z87.891 Personal history of nicotine dependence; Z86.73 Personal history of transient ischemic attack (TIA), and cerebral infarction without residual deficits | CPT/HCPCS: 99213; 99214 ==

== ENCOUNTER 2022-07-21 11:00 | Outpatient (CLI) | payer MEDICARE, SELFPAY ==
--- NOTE | 2022-07-21 11:07 | MM_ITS ---
WS: [id number] BILATERAL SCREENING DIGITAL TOMOSYNTHESIS MAMMOGRAM WITH CAD HISTORY: Screening. COMPARISON: 2020, 04/10/2020 Bilateral CC and MLO views with tomosynthesis and synthetic mammography submitted. Computer aided det ection analyzed. Motion artifact limits evaluation of the breast. Breast composition: The breasts are heterogeneously dense, which may obscure small masses. No suspici ous masses, microcalcifications or architectural distortion. MM/MM tomosynthesis [facility] [place] [id number] IMPRESSION: BI-RADS: 2-Benign FOLLOW UP: 1 Year Follow-up
== END 2022-07-21 11:01 | disposition home or self-care (01) ==
LOC: RAD 11:03
PROVIDERS: PCP Family Medicine Adult Medicine; Visit Provider Family Medicine Adult Medicine
DX: Z12.31 Encounter for screening mammogram for malignant neoplasm of breast (principal)
CPT/HCPCS: 77063; 77067

== ENCOUNTER → 2022-08-11 09:00 | Outpatient (BNVA) | payer MEDICARE, SELFPAY | PROVIDERS: PCP Family Medicine Adult Medicine; Visit Provider Internal Medicine Cardiovascular Disease | DX: Z45.010 Encounter for checking and testing of cardiac pacemaker pulse generator [battery] (principal) | CPT/HCPCS: 93280 ==

== ENCOUNTER → 2022-11-10 09:35 | Outpatient (BNVA) | payer MEDICARE, SELFPAY | PROVIDERS: PCP Family Medicine Adult Medicine; Visit Provider Nurse Practitioner Family | DX: I10 Essential (primary) hypertension (principal); Z95.0 Presence of cardiac pacemaker; Z87.891 Personal history of nicotine dependence; Z79.82 Long term (current) use of aspirin | CPT/HCPCS: 99214 ==

== ENCOUNTER 2022-12-25 10:49 | Emergency (ER) | payer MEDICARE, SELFPAY ==
[2022-12-25 10:59] VITALS: BP 164/94; PULSE 72; RESP 18; TEMP 36.5; O2SAT 98; BMI 18.3
[2022-12-25 13:01] LABS: Basophils # 0.1 10^3/uL (0.0-0.1); Basophils % 0.7 %; Eosinophils % 0.3 %; Hematocrit 39.3 % (37.0-47.0); Hemoglobin 12.9 g/dL (11.5-15.3); Lymphocytes # 0.7 10^3/uL (0.8-4.8); Lymphocytes % 9.3 %; Mean Corpuscular HGB Conc 32.8 g/dL (30.0-36.0); Mean Corpuscular Hemoglobin 28.7 pg (28.0-34.0); Mean Corpuscular Volume 87.3 fl (81-99); Mean Platelet Volume 8.3 fL (7.4-10.4); Monocytes # 0.5 10^3/uL (0.2-0.9); Monocytes % 5.9 %; Neutrophils # 6.39 10^3/uL (1.8-7.7); Neutrophils % 83.4 %; Nucleated Red Blood Cells % 0 %; Platelet Count 351 10^3/cmm (130-400); Red Cell Distribution Width 12.7 % (12.1-15.1); White Blood Count 7.7 10^3/uL (4.0-10.0)
[2022-12-25 13:16] LABS: Alanine Aminotransferase 15 U/L (0-33); Albumin Level 4.5 g/dL (3.5-5.2); Alkaline Phosphatase 105 U/L (35-105); Anion Gap 15.5 (5-19); Aspartate Amino Transferase 27 U/L (0-32); Blood Urea Nitrogen 7 mg/dL (8-23); Calcium 9.5 mg/dL (8.5-10.5); Carbon Dioxide 28 mmol/L (22-29); Chloride 84 mmol/L (98-107); Globulin 3.4 g/dL (1.3-4.6); Glucose 99 mg/dL (65-115); Lipase 41 U/L (13-60); Osmolality Calculated 256 mOsm/kg (285-295); Potassium 3.5 mmol/L (3.5-5.1); Sodium 124 mmol/L (136-145); Total Bilirubin 0.6 mg/dL (0.15-1.2); Total Protein 7.9 g/dL (6.6-8.7)
--- NOTE | 2022-12-25 14:15 | ED_ITS ---
HPI - Abdominal Pain General: Chief Complaint: Abdominal Pain Stated Complaint: abd pain constapatied Time Seen by Provider: 12/25/22 14:15 History of Present Illness: Ms Zendejas is a 77-year-old lady with history of hypertension, hyperlipidemia, COPD, vascular disease presenting to the emergency department for abdominal pain. She reports onset of symptoms approximately 10 days ago without known specific provoking event. Initially mild intermittent cramping however since worsened and become constant. She also notes urge to defecate however has not had bowel movement for few days. Overall course of symptoms has worsened. Nausea but no vomiting. Poor p.o. intake. No other specific changes in health, exacerbating, or alleviating factors identified. Onset (ago): day(s) Pain Consistency: constant Location: Diffuse Severity: moderate Exacerbating factors: nothing Relieving factors: nothing Associated Symptoms: Reports constipation, nausea and poor appetite Review of Systems General: Reports: 10 or more systems reviewed and unremarkable except in HPI and below GI: Reports: nausea and constipation PFSH ED PFSH: Medical History Allergic rhinitis due to allergen Anxiety and depression COPD suggested by initial evaluation CVD (cerebrovascular disease) Remote CVA Dermatitis of lower extremity Gastroesophageal reflux disease Hearing loss of aging Helicobacter pylori gastritis Hx of fracture of hip Hypertension Pre-syncope TIA (transient ischemic attack) Urine, incontinence, stress female Surgical History H/O esophagogastroduodenoscopy (01/04/22) Pacemaker Status post colonoscopy Family History Brother Cancer Mother Dementia Father Hypertension Denies family history of Colon cancer Diabetes Hypercholesteremia Breast cancer Suicide Lung disease Uterine cancer Thyroid disease Stroke Social History Smoking and tobacco status: former smoker (quit 1997) Alcohol intake: never Substance/Drug Use: never Physical Exam Const: COMMON NORMALS: alert GENERAL APPEARANCE: cooperative and well developed HENMT: COMMON NORMALS: normocephalic and atraumatic HEAD & SCALP: normocephalic and atraumatic Eye: COMMON NORMALS: conjunctivae normal CONJUNCTIVA: Yes conjunctivae normal SCLERA: sclerae normal Neck/C-Spine: COMMON NORMALS: supple GENERAL: Yes trachea midline Resp: COMMON NORMALS: clear to auscultation bilaterally EFFORT & INSPECTION: Yes able to speak in complete sentences AUSCULTATION: clear to auscultation bilaterally Cardio: COMMON NORMALS: regular rate and regular rhythm RATE: regular rate RHYTHM: regular rhythm GI: COMMON NORMALS: Soft to palpation PALPATION: Yes Soft to palpation, Yes Tenderness to palpation present (GI), No Guarding due to palpation present (GI) and No Rigid due to palpation Extremity: GENERAL: Yes normal exam except as noted and No edema Neuro: COMMON NORMALS: moves all extremities SENSORIUM/ORIENTATION: Yes alert and No Orientation impaired Psych: COMMON NORMALS: mental status grossly normal and Normal thought process present THOUGHT PROCESS: Normal thought process present Course Vital Signs: Vital signs: Vital Signs Temperature 97.7 F 12/25/22 10:59 Pulse Rate 68 12/25/22 17:46 Respiratory Rate 18 12/25/22 18:21 Blood Pressure 125/79 12/25/22 17:46 Pulse Oximetry 99 12/25/22 18:21 Oxygen Delivery Me thod Room Air 12/25/22 18:21 MDM - Abdominal Pain Medical Decision Making 77-year-old lady presenting due to abdominal pain and constipation. She has abdominal tenderness with no evidence of acute surgical abdomen. No significant laboratory abnormalities with exception of mild dehydration hyponatremia. No UTI CT demonstrates significant constipation. Incidental findings discussed with patient. Ordered multiple doses of p.o. medications as well as enemas and patient had a mild medicine output. Ultimately she expressed desire for discharge and continued treatment at home. The results of ED evaluation were discussed with the patient including prescriptions and/or symptomatic cares (if applicable) including appropriate and responsible use, followup plan, and return precautions. The patient verbalized understanding and felt safe for discharge. Medical Records I reviewed the patient's medical records. Lab Data I reviewed the patient's lab results. 12/25/22 12:47 12/25/22 12:47 Labs/Radiology: Radiology Impressions Abdomen/Pelvis CT 12/25/22 14:42 IMPRESSION: 1. Marked diffuse constipation and fecal retention. 2. No free fluid or free air. 3. Small hiatal hernia. 4. No renal obstruction. 5. Suspect RIGHT sacral insufficiency fracture. Correlate with RIGHT sacral pain. Laboratory Results WBC 7.7 10^3/uL (4.0-10.0) 12/25/22 12:47 RBC 4.50 10^6/uL (4.1-5.3) 12/25/22 12:47 Hgb 12.9 g/dL (11.5-15.3) 12/25/22 12:47 Hct 39.3 % (37.0-47.0) 12/25/22 12:47 MCV 87.3 fl (81-99) 12/25/22 12:47 MCH 28.7 pg (28.0-34.0) 12/25/22 12:47 MCHC 32.8 g/dL (30.0-36.0) 12/25/22 12:47 RDW 12.7 % (12.1-15.1) 12/25/22 12:47 Plt Count 351 10^3/cmm (130-400) 12/25/22 12:47 MPV 8.3 fL (7.4-10.4) 12/25/22 12:47 Neut % (Auto) 83.4 % 12/25/22 12:47 Lymph % (Auto) 9.3 % 12/25/22 12:47 [place] % (Auto) 5.9 % 12/25/22 12:47 Eos % (Auto) 0.3 % 12/25/22 12:47 Baso % (Auto) 0.7 % 12/25/22 12:47 Neut # (Auto) 6.39 10^3/uL (1.8-7.7) 12/25/22 12:47 Lymph # (Auto) 0.7 10^3/uL (0.8-4.8) L 12/25/22 12:47 [place] # (Auto) 0.5 10^3/uL (0.2-0.9) 12/25/22 12:47 Eos # (Auto) 0.0 10^3/uL (0.0-0.8) 12/25/22 12:47 Baso # (Auto) 0.1 10^3/uL (0.0-0.1) 12/25/22 12:47 Nucleated RBC % (auto) 0 % 12/25/22 12:47 Nucleated RBCs # 0.0 /100WBC 12/25/22 12:47 Sodium 124 mmol/L (136-145) L 12/25/22 12:47 Potassium 3.5 mmol/L (3.5-5.1) 12/25/22 12:47 Chloride 84 mmol/L (98-107) L 12/25/22 12:47 Carbon Dioxide 28 mmol/L (22-29) 12/25/22 12:47 Anion Gap 15.5 (5-19) 12/25/22 12:47 BUN 7 mg/dL (8-23) L 12/25/22 12:47 Creatinine 0.5 mg/dL (0.5-0.9) 12/25/22 12:47 GFR Calculation Not Reportable 12/25/22 12:47 Glucose 99 mg/dL (65-115) 12/25/22 12:47 Calculated Osmolality 256 mOsm/kg (285-295) L 12/25/22 12:47 Calcium 9.5 mg/dL (8.5-10.5) 12/25/22 12:47 Total Bilirubin 0.6 mg/dL (0.15-1.2) 12/25/22 12:47 AST 27 U/L (0-32) 12/25/22 12:47 ALT 15 U/L (0-33) 12/25/22 12:47 Alkaline Phosphatase 105 U/L (35-105) 12/25/22 12:47 Total Protein 7.9 g/dL (6.6-8.7) 12/25/22 12:47 Albumin 4.5 g/dL (3.5-5.2) 12/25/22 12:47 Globulin 3.4 g/dL (1.3-4.6) 12/25/22 12:47 Lipase 41 U/L (13-60) 12/25/22 12:47 Urine Color Straw (Yellow) 12/25/22 15:29 Urine Appearance Clear (CLEAR) 12/25/22 15: Urine pH 7 (5-7) 12/25/22 15:29 Ur Specific [place] 1.005 (1.005-1.030) 12/25/22 15: Urine Protein Neg (Negative) 12/25/22 15: Urine Glucose (UA) Norm (Normal) 12/25/22 15: Urine Ketones Negative (Negative) 12/25/22 15:29 Urine Blood Neg (Negative) 12/25/22 15:29 Urine Nitrate Negative (Negative) 12/25/22 15:29 Urine Bilirubin Neg (Negative) 12/25/22 15:29 Urine Urobilinogen Norm mg/dL (Negative) 12/25/22 15:29 Ur Leukocyte Esterase Negative (Negative) 12/25/22 15:29 Discharge Plan Discharge Patient Disposition: Home Clinical Impression: Abdominal pain, Dehydration, Acute constipation Condition: Stable Prescriptions: New ondansetron 4 mg tablet,disintegrating 4 mg PO Q8H PRN (Reason: nausea and vomiting) Qty: 15 0RF Colace 100 mg capsule 100 mg PO BID PRN (Reason: constipation) Qty: 30 0RF senna 8.6 mg capsule 8.6 mg PO BID PRN (Reason: constipation) Qty: 30 0RF No Action Metamucil (with sugar) 3 gram/7 gram powder 2 tbsp PO DAILY Qty: 798 3RF Rx Instructions: Take 2 Tbsp at bedtime. tramadol 50 mg tablet 50 mg PO BID PRN (Reason: moderate to severe Pain) 30 Days Qty: 60 3RF Rx Instructions: refill on or after 30 day intervals atenolol 25 mg tablet 25 mg PO BID 90 Days Qty: 180 1RF aspirin 81 mg tablet,chewable 81 mg PO DAILY Qty: 90 3RF clotrimazole-betamethasone 1-0.05 % lotion 1 applic topical BID 14 Days Qty: 30 3RF Rx Instructions: Ply for 2 weeks stop and then if it returns apply again it can be repeated pantoprazole 40 mg tablet,delayed release (DR/EC) 40 mg PO QAM PRN (Reason: acid reflux) Qty: 90 3RF atorvastatin 10 mg tablet 10 mg PO BEDTIME Qty: 90 1RF triamterene-hydrochlorothiazid 37.5-25 mg capsule 1 cap PO DAILY 90 Days Qty: 90 1RF clopidogrel 75 mg tablet 75 mg PO DAILY 30 Days Qty: 90 1RF multivitamin Tablet 1 tab PO DAILY ascorbic acid (vitamin C) [Vitamin C] 500 mg Tablet 500 mg PO DAILY Vitamin B-12 1,000 mcg Tablet 1,000 mcg PO DAILY montelukast 10 mg tablet 10 mg PO DAILY Discharge Orders: Discharge ED (Routine); Ordered 04/17/23 Ordered By: Fer Lyle Referrals: Ton Muse MD [Primary Care Provider] - Discharge Diet: Advance as tolerated and Clear Liquid Discharge Activity: Increase activity as tolerated Patient Instructions: Constipation (ED), Dehydration (ED), Abdominal Pain (ED), Opioid Safety Activity Restrictions/Additional Instructions: Thank you for visiting the emergency department. You were seen and evaluated for abdominal pain. The most likely cause of your symptoms is constipation. You were also found to have dehydration. We are pleased that you had some improvement with treatment in the emergency department. Given the amount of constipation you require continued outpatient treatment. We will prescribe medications for constipation as well as antinausea medication. I recommend continued treatment over the next few days. The goal is to have multiple applesauce consistency bowel movements per day. With this you are at risk for further dehydration, please make sure that you are staying hydrated with electrolyte solutions such as Gatorade or other similar drinks. Please follow-up with your primary care provider. Return to the emergency department for anything that you are concerned about and feel needs emergency department evaluation. Coding Level of Care Code ED Optical Instrument Assembler for Abelardo Kilgore
--- NOTE | 2022-12-25 14:42 | CT_ITS ---
WS: [id number] CT ABDOMEN AND PELVIS WITH CONTRAST HISTORY: abd pain, nausea TECHNIQUE: Imaging performed of the abdomen and pelvis with IV contrast. Single phase imaging of the abdomen. Coronal and sagittal reformats are submitted. All CT scans at [facility] use at [address] [facility] one of these dose optimization techniques: automated exposure control; mA and/or kV adjustment per patient size (includes targeted exams where dose is matched to clinical indication); or iterative re construction. IV CONTRAST: Omnipaque 350; 75 mL IV. Oral contrast: No DLP: 621.49 mGy.cm COMPARISON: None available. Lower thorax: Mild dependent changes at the lung bases. Heart is normal size. Small hiatal hernia. Liver/biliary system: Normal size with no intrahepatic dilatation. Gallbladder: Motion artifact. No abnormality identified. Pancreas: Poorly visualized due to motion artifact. Spleen: Normal size spleen. No mass or infarct. Adrenal glands: Mild hyperplasia. Right kidney: Normal. Left kidney: Normal. Aorta: Mild atherosclerosis with no aneurysm. Lymphadenopathy: None. Free fluid: None. GI tract: Severe diffuse constipation. Tortuosity and overlapping loops of colon. Marked fecal retent ion towards the rectum and sigmoid. No small bowel obstruction. Nondistended stomach. No wall thicken ing or ischemic changes. Abdominal wall: Unremarkable abdominal wall. No hernia. Pelvis: No free fluid or adenopathy within the pelvis. Small atrophic uterus. Air in the urinary blad navneet may be from recent catheterization. Bones: Osteopenia. Prior LEFT hip ORIF. Sclerotic area within the RIGHT sacrum may be an insufficienc y fracture. CT/CT abdomen pelvis w con* [id number] IMPRESSION: 1. Marked diffuse constipation and fecal retention. 2. No free fluid or free air. 3. Small hiatal hernia. 4. No renal obstruction. 5. Suspect RIGHT sacral insufficiency fracture. Correlate with RIGHT sacral pa in.
[2022-12-25] MEDS: iohexol 350 mg/mL 500 mL Btl (per mL) IV (15:14)
[2022-12-25] MEDS: sodium chloride 0.9% 500 ML 999 ML IV (15:27)
[2022-12-25] MEDS: fentaNYL 50 mcg/mL INJ 2mL 25 MCG IVP (15:28)
[2022-12-25] MEDS: ondansetron 2 mg/ML SDV 2 mL 4 MG IVP (15:28)
[2022-12-25 15:29] VITALS: BP 123/76; PULSE 71; RESP 18; O2SAT 97
[2022-12-25 15:36] LABS: Add Urine Microscopic? NO; Charge for UA Resulting for Rev
[2022-12-25 16:04] LABS: Glucose Urine UA Norm (Normal); Protein Urine Neg (Negative); Specific Gravity, Urine 1.005 (1.005-1.030); Urine Appearance Clear (CLEAR); Urine Color Straw (Yellow); pH Urine 7 (5-7)
[2022-12-25 16:05] LABS: Bilirubin Urine Neg (Negative); Blood Urine Neg (Negative); Ketones Urine Negative (Negative); Leukocyte Esterase Urine Negative (Negative); Nitrate Urine Negative (Negative); Urobilinogen Urine Norm (Negative)
[2022-12-25] MEDS: polyethylene glycol 3350 Pkt 17 gm PO ×2 (16:16→17:16)
[2022-12-25] MEDS: magnesium hydroxide 30 mL UDC PO (16:16)
[2022-12-25] MEDS: ketorolac 30 mg/mL INJ 15 MG IVP (17:16)
[2022-12-25 17:46] VITALS: BP 125/79; PULSE 68; RESP 18; O2SAT 97
[2022-12-25] MEDS: lactulose oral liq 20 gm/30 mL UDC 200 GM PR (18:19)
[2022-12-25 18:21] VITALS: RESP 18; O2SAT 99
--- NOTE | 2022-12-25 18:21 | PC.NURSE ---
LACTULOSE ENEMA PERFORMED. PATIENT TOLERATED PROCEDURE WELL.
== END 2022-12-25 19:30 | disposition home or self-care (01) ==
PROVIDERS: Family Medicine; Emergency Provider Emergency Medicine; PCP Family Medicine Adult Medicine
DX: K59.00 Constipation, unspecified (principal); E86.0 Dehydration; Z79.82 Long term (current) use of aspirin; Z79.02 Long term (current) use of antithrombotics/antiplatelets; Z87.891 Personal history of nicotine dependence; J44.9 Chronic obstructive pulmonary disease, unspecified; Z86.73 Personal history of transient ischemic attack (TIA), and cerebral infarction without residual deficits; I10 Essential (primary) hypertension; Z95.0 Presence of cardiac pacemaker
CPT/HCPCS: 36415; 74177; 80053; 81003; 83690; 85025; 96361; 96374; 96375; 99285; J1885; J2405; J3010; J7040; Q9967